=== PATIENT | male | born 1965 | race Caucasian/White ===

== ENCOUNTER → 2020-07-14 | Outpatient (CLI) | payer OTHER | LOC: M.ULTRA 13:00 | PROVIDERS: ATTEND Specialist | DX: I70.202 Unspecified atherosclerosis of native arteries of extremities, left leg (principal); I70.291 Other atherosclerosis of native arteries of extremities, right leg; I89.0 Lymphedema, not elsewhere classified ==

== ENCOUNTER → 2020-09-14 | Day surgery (SDC) | payer OTHER ==
[~2020-09-14] MED LIST: ALLOPURINOL 10100 M1 PO; MULTIVITAMINS PO; PRILOSEC OTC20 MG PO
--- NOTE | ~2020-09-14 | PROC ---
[address] [address] PROCEDURE REPORT Name: WAQAR MENENDEZ Room: [facility]#: [id number] Admission: 09/14/20 Attend Phys: Fabio Shane DO Discharge: Date of : 69 Report #: [id number] THIS REPORT FOR: cc: Andree Culp Linda J. DO ~ [facility],Medical Records Staff For GI report, please see the Provation report in Perceptive 7 content. By: 1457Medical Records Staff KAYA /NELLY
--- NOTE | 2020-09-17 16:06 | PATH ---
[facility] [address] [place] [address] PATHOLOGY RPT PROCEDURE Name: WAQAR MENENDEZ Room: [facility].Angle.#: [id number] Admission: 09/14/20 Date of : 69 Discharge: Report #: [id number] Path Case #: [id number] [facility] Accession Number: [id number] . 01 Material submitted: . PART A: colon - PROXIMAL ASCENDING COLON POLYP. Modifiers: proximal, ascending PART B: colon - MID ASCENDING COLON POLYP. Modifiers: mid, ascending . 01 Clinical history: . DS/EGD AND COLONOSCOPY . 02 Diagnosis: A. Proximal ascending colon polyp: - Tubular adenoma, negative for high-grade dysplasia. . B. Mid ascending colon polyp: - Tubular adenoma, negative for high-grade dysplasia. (LILO:pit 09/17/2020) QTP 09/17/2020 1339 Local . 02 Electronically signed: . George Morejon MD, Pathologist NPI- [id number] . 01 Gross description: . A. The specimen is received in formalin, labeled "Waqar Menendez, proximal ascending colon polyp". Received is a segment of pale hsu soft tissue measuring 0.7 cm in maximum dimensions. The specimen is submitted entirely in cassette A1. . B. The specimen is received in formalin, labeled "Waqar Clineo, mid ascending colon polyp". Received is a segment of pale hsu soft tissue measuring 1.2 cm in maximum dimensions. The specimen is submitted entirely in cassette B1. (CAA; 09/16/2020) QAC/QAC 09/16/2020 1624 Local . 02 Pathologist provided ICD-10: D12.2 . 02 CPT . 342501, [id number] Specimen Comment: A courtesy copy of this report has been sent to [phone] Specimen Comment: [phone] Specimen Comment: Report sent to / DR PUENTES Performed at: [address] [place] [address] PATHOLOGY RPT PROCEDURE Name: WAQAR MENENDEZ Room: [facility]#: [id number] Admission: 09/14/20 Date of : 69 Discharge: Report #: [id number] Path Case #: [id number] [facility] [address], [place], [place] [id number] MD Dennis Wren MD Phone: [phone] Performed at: 02 [facility] [address], [place], [place] [id number] MD George Morejon MD Phone: [phone]
== END | disposition home or self-care (01) ==
LOC: M.SUR 05:25
PROVIDERS: ATTEND Internal Medicine Gastroenterology
DX: Z12.11 Encounter for screening for malignant neoplasm of colon (principal); D12.2 Benign neoplasm of ascending colon; K57.30 Diverticulosis of large intestine without perforation or abscess without bleeding; K64.4 Residual hemorrhoidal skin tags; R12 Heartburn; K44.9 Diaphragmatic hernia without obstruction or gangrene; K21.9 Gastro-esophageal reflux disease without esophagitis; M10.9 Gout, unspecified; Z98.890 Other specified postprocedural states; Z79.899 Other long term (current) drug therapy